=== PATIENT | male | born 1975 | race Caucasian/White ===

== ENCOUNTER 2017-01-06 13:53 | Day surgery (SDC) | payer BC ==
--- NOTE | ~2017-01-06 | OP ---
Record Of Operation [facility] [address] [place]. [address] NAME: TEX MARQUEZ : 75 STATUS : [facility]#: [id number] AGE: 41 ADM/REG DATE : 01/06/17 MR#: [id number] REPORT SERV DATE: 01/07/17 DICTATED BY: ROJELIO CUMMINGS DATE: 01/06/17 REPORT STATUS : Draft TRANSCRIBED BY: CONNIE DATE: 01/06/17 DATE OF PROCEDURE: 01/06/2017 PREOPERATIVE DIAGNOSIS: Left proximal ureteral stone. POSTOPERATIVE DIAGNOSIS: Left proximal ureteral stone. PROCEDURE PERFORMED: Cystoscopy, left retrograde pyelogram, left flexible ureterorenoscopy, holmium laser stone fragmentation, and stent placement. ANESTHESIA: General. ESTIMATED BLOOD LOSS: 5 mL. INDICATIONS: This is a 41-year-old white male with history of recurrent stone formation, who presented to the office today complaining of recent history of fairly severe left back pain. CT of the abdomen and pelvis documented a roughly 7 mm proximal 3rd left ureteral stone with obstruction. After discussion of management options, the patient has elected to proceed with endoscopic fragmentation and stenting. Risks of infection, bleeding, failure, need for further surgery, etc. were reviewed. PROCEDURE IN DETAIL: The patient was taken to the operating room and underwent a general anesthetic. He was placed in the lithotomy position on the table, and his external genitalia were sterilely prepped and draped. The 22-Cymraes cystoscope sheath with 30-degree lens was inserted under direct vision per urethra with the aid of the video monitor. The anterior urethra was normal. The prostate was short and nonocclusive. The bladder was inspected. Visibility was excellent. Mucosa was normal throughout. There were no mass or lesions. There were no stones within the bladder. Single orifices were seen bilaterally. The left orifice was cannulated with a 5-Cymraes open-ended catheter and a retrograde pyelogram was obtained demonstrating a normal caliber ureter with perhaps a faint filling defect in the proximal third. There was mild dilatation of the left collecting system. The patient was very large and the images were grainy. An 0.038 guidewire was advanced up into the kidney under fluoroscopic guidance. Over this, the 9.5/11-Cymraes ureteral access sheath with obturator was advanced up into the roughly mid ureter. A second guidewire was placed through the access sheath, and the sheath and obturator were then replaced over one of the two guidewires leaving the other in place as a safety wire. The flexible ureteroscope was advanced through the access sheath and up into the ureter. In the proximal ureter below the UPJ area, there was a narrow area of ureter which was a little difficult to traverse with the scope, just superior to this lays this stone which looked like it was about 7 mm in size. The 200 micron holmium laser was used to fragment the stone into multiple tiny pieces. Some of the pieces were chased backward into the collecting system of the kidney and further fragmented in a mid pole calyx. The remainder of the collecting system was thoroughly inspected and no other significant stones were noted there. After adequate inspection of the renal collecting system. The scope was withdrawn under direct vision down through the ureter and only small stone fragments remained there. No other significant findings were noted. The ureteroscope was withdrawn from the bladder and the cystoscope was Record Of Operation [address] [address] NAME: TEX MARQUEZ : 75 STATUS : [facility] PAT#: [id number] AGE: 41 ADM/REG DATE : 01/06/17 MR#: [id number] REPORT SERV DATE: 01/07/17 DICTATED BY: ROJELIO CUMMINGS DATE: 01/06/17 REPORT STATUS : Draft TRANSCRIBED BY: CONNIE DATE: 01/06/17 replaced over the guidewire, and a 6-Cymraes x 28 cm [place] stent was advanced over the guidewire such that the proximal end of the stent was observed to coil in the pelvis of the kidney under fluoroscopic guidance and the distal end of the stent was visually observed to coil in the bladder following removal of the guidewire. The stent was left connected to a string dangle which was taped to the patient's penis. He tolerated the procedure well. There were no complications. He was taken to recovery in stable condition. VIK/CONNIE Rojelio Cummings M.D. / [id number] CC: Tati Smith W. A.
[2017-01-06] MEDS ORDERED: ZESTORETIC1 TA1 PO (14:28)
[2017-01-06] MEDS ORDERED: TOPROL XL200 MG PO (14:30)
[2017-01-06] MEDS ORDERED: NORCO1 TAB PO (14:33)
[2017-01-06 14:39] LABS: BASOPHILS 0.2 %; BASOPHILS ABSOLUTE 0.02 10/3/uL (0.0-0.16); EOSINOPHILS 1.3 %; EOSINOPHILS ABSOLUTE 0.14 10/3/uL (0.0-0.53); HEMATOCRIT 47.5 % (40.0-51.0); HEMOGLOBIN 16.5 g/dL (13.6-17.8); IMMATURE GRANULOCYTES 0.3 %; IMMATURE GRANULOCYTES ABSOLUTE 0.03 10/3/uL (0.0-0.11); LYMPHOCYTES 27.7 %; LYMPHOCYTES ABSOLUTE 2.91 10/3/uL (0.67-4.30); MANUAL DIFF NO %; MEAN CORPUS HGB CONC 34.7 g/dL (32.0-36.0); MEAN CORPUSCULAR HEMOGLOB 31.1 pg (26.0-34.0); MEAN CORPUSCULAR VOLUME 89.5 fL (80-100); MEAN PLATELET VOLUME 10.6 fL (9.2-13.0); MONOCYTES 9.2 %; MONOCYTES ABSOLUTE 0.96 10/3/uL (0.21-1.20); NEUTROPHILS 61.3 %; NEUTROPHILS ABSOLUTE 6.43 10/3/uL (2.02-8.40); PLATELET COUNT 278 10/3/uL (150-400); RBC DISTRIBUTION WIDTH 13.2 % (12.0-16.0); RED CELL COUNT 5.31 10/6/uL (4.7-6.1); WHITE BLOOD CELLS 10.5 10/3/uL (4.5-10.5)
[2017-01-06 14:49] LABS: BUN (BLOOD UREA NITROGEN) 14 MG/DL (6-23); CHLORIDE, SERUM 103 MMOL/L (96-112); CO2 (CARBON DIOXIDE) 29 MMOL/L (24-34); CREATININE 1.04 MG/DL (0.70-1.30); GFR AFRICAN AMERICAN 103 ML/MIN (>=60); GFR NON AFRICAN AMERICAN 89 ML/MIN (>=60); GLUCOSE, SERUM 87 MG/DL (60-99); POTASSIUM, SERUM 3.3 MMOL/L (3.5-5.3); SODIUM, SERUM 140 MMOL/L (135-148)
== END 2017-01-06 21:04 | disposition home or self-care (01) ==
LOC: SDC 13:53
PROVIDERS: Urology
PROC: 0T778DZ Dilation of Left Ureter with Intraluminal Device, Via Natural or Artificial Opening Endoscopic (ICD-10-PCS; 2017-01-06)
PROC: 0TC78ZZ Extirpation of Matter from Left Ureter, Via Natural or Artificial Opening Endoscopic (ICD-10-PCS; 2017-01-06)
PROC: BT1FZZZ Fluoroscopy of Left Kidney, Ureter and Bladder (ICD-10-PCS; 2017-01-06)
PROC: 0WFR8ZZ Fragmentation in Genitourinary Tract, Via Natural or Artificial Opening Endoscopic (ICD-10-PCS; principal; 2017-01-06 15:15)
DX: N20.1 Calculus of ureter (principal); I10 Essential (primary) hypertension; G47.33 Obstructive sleep apnea (adult) (pediatric); E66.01 Morbid (severe) obesity due to excess calories; Z79.891 Long term (current) use of opiate analgesic; Z79.899 Other long term (current) drug therapy
CPT/HCPCS: 71010; 74420; 80048; 85025; 93005; A9270-GY; C1758; C1894; C2617; J0330; J2250; J2270; J2405; J3010; Q9967